=== PATIENT | female | born 1935 | race Caucasian/White ===

== ENCOUNTER 2017-01-24 22:19 | Inpatient (IN) ==
[2017-01-24] MEDS ORDERED: CARDIZEM IV ONE ×2 (23:00→23:53)
[2017-01-24 23:07] LABS: MANUAL DIFF NEEDED? NO
[2017-01-24 23:25] LABS: BASO% 0.3 % (0.0-0.8); EOS# 0.01 X1000 (0.0-0.7); EOS% 0.3 % (0.0-10.0); HEMATOCRIT 41.1 % (37.0-47.0); HEMOGLOBIN 13.5 g/dL (12.0-16.0); LYMPH# 2.06 X1000 (1.2-3.4); LYMPH% 55.5 % (20.5-51.1); MCHC 32.8 g/dL (33-37); MCV 91.3 FL (81-99); MONO# 0.62 X1000 (0.11-0.59); MONO% 16.7 % (1.7-9.3); MPV 11.6 FL (7.4-10.4); NEUT% 27.2 % (42.2-75.2); PLT 147 X1000 (130-400)
[2017-01-24 23:26] LABS: AGAP 14; ALBUMIN 4.5 g/dL (3.5-5.0); ALKALINE PHOSPHATASE 93 U/L (32-104); BUN 8 mg/dL (8-22); CALCIUM 9.1 mg/dL (8.8-10.2); CHLORIDE 103 mmol/L (98-107); COSMO 283; GOT 22 U/L (10-30); GPT 13 U/L (10-36); MAGNESIUM 2.2 mg/dL (1.5-2.7); POTASSIUM 3.3 mmol/L (3.5-5.1); SODIUM 143 mmol/L (136-145); TCO2 26 mmol/L (25-35); TOTAL PROTEIN 7.5 g/dL (6.3-8.3)
[2017-01-25 00:03] LABS: FREE T4 2.34 ng/dL (0.93-1.70)
[2017-01-25] MEDS ORDERED: CARDIZEM 100 MG/NS 100 MG/100 ML IVPB IV SCH ×2 (00:17→07:00)
[2017-01-25] MEDS ORDERED: CARDIZEM IV ONE (00:17)
--- NOTE | 2017-01-25 00:20 | ED EKG INTERP ---
This chart was entered by Donna Martins Scribe, acting as scribe for Tanmay Antonio MD. EKG Interpretation - EKG Time of EKG reading by physician:: 22:19 EKG Read and Signed by:: Tanmay Antonio EKG Interpretation (*Must complete 3 of following elements*): Abnormal Rate: 145 Rhythm: AFib w/ RVE with premature ventricular or aberrantly conducted complexes QRS: RBB (incomplete) Comments: Abnormal ECG, Marked ST abnormality,possible inferior subendocardial injury This chart was documented by the indicated scribe, (Donna Martisn Scribe) and accurately reflects the services I performed and decisions made by me, Tanmay Antonio MD, as attested by the provider's signature.
--- NOTE | 2017-01-25 00:22 | PROVIDER DOCUMENTATION ---
This chart was entered by Donna Martins Scribe, acting as scribe for Tanmay Antonio MD. HPI-Cardiac General - General Chief Complaint: Palpitations Stated Complaint: A-FIB Time Seen by Provider: 01/24/17 22:30 Source: patient Allergies/Adverse Reactions: Patient Allergies Allergy/AdvReac Type Severity Reaction Status Date / Time No Known Allergies Allergy Verified 01/24/17 22:40 Home Medications: Home Medication List Medication Instructions Recorded Confirmed Last Taken Type Gabapentin [Neurontin] 300 mg PO TID 01/22/14 01/24/17 01/24/17 History Levothyroxine Sodium [Synthroid] 125 mcg PO DAILY 01/22/14 01/24/17 01/24/17 History - History of Present Illness-Cardiac Nature of Presenting Problem: 82 Y/O F presents to ED with Palpitations. Pt states that yesterday she had an infusion of Iron and today she was in the kitchen and her heart started fluttering and didn't stop fluttering. Pt states that she has a family hx of irregular heart beat. Pt states feels as though she had pressure on her chest and she's felt lightheaded. Location: reports: central Quality of Pain: reports: pressure Severity in ED: severe Onset/Duration: this evening Timing: still present Palpitation Quality: fast/pounding heart beat History of arrythmia: reports: other (irregular) Recent use of:: reports: no stimulants Nitro Today/Relief: reports: no nitro taken today Aspirin Treatment Today: reports: no aspirin today Associated Symptoms: denies: fever/chills, shortness of breath Review of Systems - Adult - REVIEW OF SYSTEMS - ADULT Constitutional: denies: chills, fever Eyes: reports: no symptoms reported Ears, Nose, Mouth & Throat: reports: no symptoms reported Cardiovascular: reports: irregular heart rate, palpitations. denies: chest pain , poor circulation Respiratory: reports: no symptoms reported Gastrointestinal: reports: no symptoms reported Genitourinary: reports: no symptoms reported Musculoskeletal: reports: no symptoms reported Integumentary: reports: no symptoms reported Neurological: reports: other (lightheaded) Psychiatric: reports: no symptoms reported Endocrine: reports: no symptoms reported Hematologic/Lymphatic: reports: no symptoms reported Allergic/Immunologic: reports: no symptoms reported All Other Systems: Reviewed and Negative Past History - Adult - PAST MEDICAL HISTORY-ADULT Review of Records: reports: Old Records Reviewed, Nursing Assessment Review, Medications Reviewed, Social history reviewed & non-contributory. Physical Exam-General - CONSTITUTIONAL General Appearance: alert, no apparent distress - EYES Eyes: PERRL/EOMI, pink conjunctivae - HEAD, EARS, NOSE, MOUTH & THROAT HENMT: normocephalic/atraumatic, moist mucous membranes, normal ENT inspection, TMs normal, pharynx normal - NECK Neck: full range of motion, supple, normal inspection - RESPIRATORY Respiratory: lungs clear, normal breath sounds - CARDIOVASCULAR Cardiovascular: tachycardia, irregularly irregular - GASTROINTESTINAL (ABDOMEN) Abdominal Exam: non tender, soft - LYMPHATIC Lymphatic: no adenopathy - MUSCULOSKELETAL Back Exam: normal inspection Extremity: normal range of motion, non-tender - SKIN Integumentary: normal color, normal turgor - NEUROLOGIC Neurologic: grossly normal - PSYCHIATRIC Psych/Mental Status: normal mood/affect, normal thought content, normal thought process, oriented x 3 Progress - PLAN OF CARE/RESULTS Progress/Plan/Lab Results: Vital Signs - 8 hr 01/24/17 22:15 01/24/17 23:53 Temperature 98.1 F Pulse Rate 137 H 120 H Respiratory Rate 26 H 22 Blood Pressure 149/106 128/114 O2 Sat by Pulse Oximetry 99 99 Laboratory Results - last 24 hr 01/24/17 01/24/17 01/24/17 21:50 21:50 21:50 WBC 3.71 L RBC 4.50 Hgb 13.5 Hct 41.1 MCV 91.3 MCH 30.0 MCHC 32.8 L RDW Std Deviation 14.9 H Plt Count 147 MPV 11.6 H Immature Gran % (Auto) 0.0 Neut % (Auto) 27.2 L Lymph % (Auto) 55.5 H Rankin % (Auto) 16.7 H Eos % (Auto) 0.3 Baso % (Auto) 0.3 Immature Gran # (Auto) 0.00 Neut # (Auto) 1.01 L Lymph # (Auto) 2.06 Rankin # (Auto) 0.62 H Eos # (Auto) 0.01 Baso # (Auto) 0.01 Sodium 143 Potassium 3.3 L Chloride 103 Carbon Dioxide 26 Anion Gap 14 BUN 8 Creatinine 0.6 Estimated GFR/1.73 m2 > 60 BUN/Creatinine Ratio 13 Glucose 96 Calculated Osmolality 283 Calcium 9.1 Magnesium 2.2 Total Bilirubin 0.60 AST 22 ALT 13 Alkaline Phosphatase 93 Total Protein 7.5 Albumin 4.5 Globulin 3.0 Albumin/Globulin Ratio 1.5 TSH 0.04 L Free T4 2.34 H Orders Category Date Time Status CBC WITH ELECTRONIC DIFF [HEME] Stat Lab 01/24/17 21:50 Completed CMP [COMPREHENSIVE METABOLIC PANEL] [CHEM] Stat Lab 01/24/17 21:50 Completed FREE T4 Stat Lab 01/24/17 21:50 Completed MAGNESIUM [CHEM] Stat Lab 01/24/17 21:50 Completed TSH Stat Lab 01/24/17 21:50 Completed Diltiazem 100 mg/Ns [Cardizem 100 mg/Ns] Med 01/25/17 00:17 Ordered 100 mg in 100 ml IV 10 mg/hr Diltiazem [Cardizem] Med 01/24/17 23:00 Discontinued 10 mg IV NOW ONE Diltiazem [Cardizem] Med 01/24/17 23:53 Discontinued 10 mg IV NOW ONE Diltiazem [Cardizem] Med 01/25/17 00:17 Discontinued 10 mg IV NOW ONE Result Diagrams: 01/24/17 21:50 01/24/17 21:50 Departure - Departure Date of Disposition Decision: 01/25/17 Time of Disposition Decision: 00:20 DIAGNOSIS: Atrial fibrillation with RVR, Iatrogenic hyperthyroidism Disposition: ADMITTED INPATIENT 09 Certified Medical Emergency: Emergent Condition: Fair - Critical Care Note This patient required my direct & personal management of CC.: No This chart was documented by the indicated scribe, (Donna Martins Scribe) and accurately reflects the services I performed and decisions made by me, Tanmay Antonio MD, as attested by the provider's signature.
[2017-01-25] MEDS ORDERED: NEURONTIN PO ONE (01:32)
--- NOTE | 2017-01-25 03:24 | HISTORY AND PHYSICAL ---
CHIEF COMPLAINT: Dizziness, heart racing, and diarrhea for several days. HISTORY OF PRESENTING ILLNESS: An 82-year-old female with a history of hypothyroidism on Synthroid, and irritable bowel syndrome. Had presented to the emergency department with several days' history of having dizziness and heart racing. Patient states that she was having also weight loss and diarrhea for several months. She apparently has been taking Synthroid. However, it seems as it may have been excessive. She was evaluated in the ER, and laboratories confirmed that she has hyperthyroidism. Due to these presenting symptoms, and with findings of having atrial fibrillation with RVR in the ED, she will need hospitalization for further management. At the time of my examination, she had denied any headache, nausea, vomiting, chest pain, hemoptysis, melena, but complained of having diarrhea, dizziness, and weight loss. PAST MEDICAL HISTORY: Hypothyroidism and irritable bowel syndrome. PAST SURGICAL HISTORY: Thyroidectomy, back surgery, cholecystectomy, hysterectomy. ALLERGIES: No known drug allergies. CURRENT MEDICATIONS: As listed in the MAR. SOCIAL HISTORY: She denies any history of smoking, alcohol, or illicit drug use. FAMILY HISTORY: No history of coronary disease. REVIEW OF SYSTEMS: Twelve point review of systems listed as in HPI. Other systems negative. PHYSICAL EXAMINATION: GENERAL: Cooperative, friendly female. She is resting more comfortably now. VITAL SIGNS: Temperature 98.1 degrees, pulse 137, respiration 26, blood pressure 149/106. She is saturating 99%. HEENT: Atraumatic, normocephalic. Extraocular movements intact. PERRLA. NECK: No masses. CHEST: Clear to auscultation. CARDIOVASCULAR: Irregularly irregular. ABDOMEN: Soft. Positive bowel sounds. EXTREMITIES: No edema. NEUROLOGIC: Awake, alert, oriented x3. GENITOURINARY: No bladder distention. SKIN: Warm. LABORATORIES AND STUDIES: WBC 3.71, hemoglobin 13.5, hematocrit 41.1, platelets 147,000. Sodium 143, potassium 3.3, chloride 103, CO2 of 26, BUN is 8, creatinine 0.6, glucose is 96. TSH is 0.04. T4 is 2.34. ASSESSMENT: An 82-year-old female with a history of hypothyroidism and diabetes, who presented to the emergency department with several days' history of having dizziness and heart racing. She was also complaining of having diarrhea and weight loss for several months. She was evaluated in the ER. She was found to be in atrial fibrillation with RVR. She was put on IV Cardizem. It was noted that she was hyperthyroid, and due to these presenting symptoms, she will need hospitalization for further management. 1. Atrial fibrillation with rapid ventricular response. 2. Exogenous hyperthyroidism. 3. Irritable bowel syndrome, with diarrhea. PLAN: 1. We will admit patient to [facility]. 2. We will continue with IV Cardizem for better rate control. 3. We will stop her thyroid hormone, and recheck thyroid function tests. 4. We will consult Cardiology also. 5. Will put patient on deep venous thrombosis prophylaxis with sequential compression devices. 6. Will adjust electrolytes. 7. We will continue to follow and reassess. cc: Elvis Tee MD
[2017-01-25] MEDS ORDERED: NS 1,000 ML IV SCH (06:59)
[2017-01-25] MEDS: NEURONTIN PO SCH ×4 (10:15→20:07)
--- NOTE | 2017-01-25 11:16 | EKG Report ---
Test Performed on : 01/25/2017 10:48:26 AM Test Reason : afib Blood Pressure : / mmHG Vent. Rate : 066 BPM Atrial Rate : 066 BPM P-R Int : 120 ms QRS Dur : 104 ms QT Int : 442 ms P-R-T Axes : 079 063 013 degrees QTc Int : 463 ms Normal sinus rhythm. with sinus arrhythmia. Possible Left atrial enlargement Incomplete right bundle branch block Nonspecific T wave abnormality Abnormal ECG When compared with ECG of 24-JAN-2017 22:19, (Unconfirmed) Sinus rhythm. has replaced Atrial fibrillation. Vent. rate has decreased BY [address] less depressed in Inferior leads ST no longer depressed in Anterolateral leads Confirmed by Jose MONTOYA, Vu Milner ([id number]) on 01/25/2017 2:56:45 PM
--- NOTE | 2017-01-25 11:53 | CONSULTATION ---
DATE OF CONSULTATION: 01/25/2017 INDICATION FOR THE CONSULTATION: New onset atrial fibrillation. HISTORY OF PRESENT ILLNESS: Ms. Kimball is an 82-year-old white female with a history of hyperthyroidism, status post thyroidectomy, as well as irritable bowel syndrome. She presented for evaluation of heart racing as well as dizziness that occurred initially around 4:00 p.m. yesterday while she was making dinner. This progressed. She checked her blood pressure at home and was noted to have a systolic above 200. She subsequently presented to the ER and was found to be in atrial fibrillation with a rate of around 140. She was administered several doses of diltiazem and ultimately planned for admission overnight. She subsequently, prior to her echocardiogram this morning, converted into sinus rhythm. She has not had a history of stroke. She is not diabetic. She has not had any issues with falls and is not a patient with bleeding issues. PAST MEDICAL HISTORY: 1. Hyperthyroidism status post thyroidectomy. 2. Irritable bowel syndrome. SOCIAL HISTORY: No history of tobacco, alcohol, or illicit drug use. FAMILY HISTORY: Significant for no early family history of coronary disease. REVIEW OF SYSTEMS: A 10-system review of systems is negative except for those mentioned in the HPI. PHYSICAL EXAMINATION: Vital signs: Presently, she is afebrile. Heart rate of 87, blood pressure 116/56. General: No acute distress. She is very pleasant. HEENT: Oropharynx is moist. Normal dentition. Eye examination is pink conjunctivae. White sclerae. Neck examination shows no obvious thyromegaly or thyroid tenderness. Cardiovascular: She is in a regular rate and rhythm. She has no obvious murmurs. She has no S3. She has no lower extremity edema. No carotid bruits. Chest: Clear to auscultation bilaterally. No increased work of breathing. Abdomen: Soft, nontender, nondistended. She has no obvious organomegaly. Skin Exam: Warm and dry throughout any rashes. Neurological: She is moving all extremities well. Cranial nerves 2-12 are intact without any sensation deficits. Psychiatric: Alert, oriented, and pleasant. She has normal mood and affect. PERTINENT DATA: Original EKG appeared to be consistent with atrial fibrillation with a rate of 145 beats per minute. Subsequent has shown conversion over to sinus rhythm with a rate of 66 beats per minute. Her laboratory data demonstrates white count of 3.7, hematocrit 41, platelet count 147,000. Sodium 143, potassium 3.3. BUN 8 creatinine 0.6. Her free T4 was high at 2.34 with a TSH of 0.04. Liver enzymes were normal. Magnesium level 2.2. Echocardiogram is currently pending, but preliminary views seem to show a preserved ejection fraction. ASSESSMENT: New onset atrial fibrillation. PLAN: The patient has a CHADS-VASc score of 2 for age and female sex. We will start her on Eliquis 2.5 mg b.i.d. dosed based on her age as well as weight. Risks, benefits and alternatives to anticoagulation were discussed with the patient. She agrees to proceed. In addition, I have started her on Toprol 25 mg daily. I would recommend decreasing her dose of her thyroid supplement as this was likely playing a role in the presentation today. She sees Dr. Pace in [place], and we will plan on following up with him within a month post discharge. cc: MD Mike Thompson MD
[2017-01-25] MEDS: ELIQUIS PO SCH ×2 (12:00→20:07)
[2017-01-25] MEDS: TOPROL XL PO SCH (12:30)
--- NOTE | 2017-01-25 20:54 | ECHO REPORT ---
ORDER DATE: 01/25/2017 INTERPRETING PHYSICIAN: Dr. Maria REQUESTING PHYSICIAN: CLINICAL INDICATIONS: An 82-year-old female with new onset atrial fibrillation , palpitations. M-MODE MEASUREMENTS: Right ventricle: 2.9 cm. Left ventricle end diastole: 4.6 cm. Left ventricle end systole: 2.4 cm. Posterior wall: 0.9 cm. Interventricular septum: 1.0 cm. Left atrium: 4.3 cm. Aortic root: 2.6 cm. SUMMARY OF 2-DIMENSIONAL IMAGING: The left ventricular function is normal. Ejection fraction 66%. There is no wall motion abnormality. The right ventricle appears to be normal. The left atrium is probably moderately dilated. The aortic valve shows thickening of the cusps. Color flow mapping indicates a mild degree of regurgitation. The pulmonic valve looks normal. Color flow mapping unremarkable. The mitral valve looks normal. Color flow mapping indicates a mild degree of regurgitation. Pulse wave Doppler of mitral inflow is normal. Tissue Doppler of septal and lateral mitral annulus averages 8 cm per second. The pulse wave Doppler of pulmonary venous flow is normal. There is no diastolic dysfunction. The tricuspid valve looks normal. Color flow mapping unremarkable. Pulmonary pressure estimated at 28 mmHg. The inferior vena cava is not dilated. The pulmonic valve looks normal. There is no pericardial effusion, masses or thrombus. At the end of the study the patient received injection of agitated saline looking for a [id number] or [id number] shunt. This study showed optimal opacification of the right-sided chamber with no evidence of shunt. IMPRESSION: In summary, this study shows: 1. Normal left ventricular systolic function. 2. Mild degree of aortic, tricuspid, and mitral regurgitation. 3. No diastolic dysfunction. 4. Pulmonary pressure of 28 mmHg. 5. There is moderate enlargement of the left atrium. Clinical correlation recommended. cc: MD Herson Moran MD Jagan Reddy, MD MTDD
--- NOTE | 2017-01-26 04:49 | PROGRESS NOTE ---
DATE: 01/25/2017 SUBJECTIVE: Interval history was reviewed. 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 She is in hypothyroid. Thyroid function tests slightly high. The patient was seen in my office for diarrhea, intractable abdominal pain. The patient had gallbladder surgery done. REVIEW OF SYSTEMS: No headache. No dizziness. Cardiopulmonary: Palpitations. No chest pain, and no shortness of breath. GI: Intermittent abdominal pain, diarrhea. Endocrine: Hypothyroid. Last thyroid function test in my office 05/19/2016 was normal. Neurologic: No obvious focal symptoms or weakness. PAST MEDICAL HISTORY/PAST SURGICAL HISTORY/MEDICINES: Reviewed. OBJECTIVE: Vital Signs: Stable. 5 feet 4 inches, 107 pounds. HEENT: Atraumatic, normocephalic. Pupils equal, reactive to light. Neck: Supple. Chest: Clear. Heart: Sounds are regular. Abdomen: Belly is soft, nontender. Good bowel sounds. No masses are palpable. No focal deficits. INVESTIGATIONS: CBC: White cell count 3.7, hematocrit 40, platelets 147,000. SMA 7: Potassium 3.3, free T4 is 2.3. TSH is low. EKG: Currently normal sinus, nothing acute. Echocardiography was done. Results are pending. ASSESSMENT AND PLAN: 1. An 82-year-old white female admitted to the hospital with palpitations due to new onset of atrial fibrillation. Currently in sinus with Cardizem drip. Follow up on echo report and cardiac enzymes. 2. Hypothyroidism. On Synthroid. Exogenous hypothyroid. Last thyroid function tests tests were normal in May 2016. We will hold the Synthroid dose. We will adjust the dose based on the body weight. 3. Based on the CHADS2 VASc score, patient is a candidate for Eliquis to prevent strokes. Currently on metoprolol. 4. Chronic diarrhea. Previous workup was negative and we will slowly reconcile the home medications. Discussed with the patient further plan of care Level of documentation is 35 minutes. cc: Mike Daniel MD MTDD
[2017-01-26 05:11] LABS: MANUAL DIFF NEEDED? NO
[2017-01-26 05:30] LABS: EOS# 0.01 X1000 (0.0-0.7); EOS% 0.3 % (0.0-10.0); HEMOGLOBIN 11.9 g/dL (12.0-16.0); LYMPH# 1.74 X1000 (1.2-3.4); LYMPH% 58.6 % (20.5-51.1); MCH 29.6 PG (27-31); MCHC 32.2 g/dL (33-37); MONO# 0.56 X1000 (0.11-0.59); MONO% 18.9 % (1.7-9.3); MPV 11.4 FL (7.4-10.4); NEUT% 22.2 % (42.2-75.2); PLT 145 X1000 (130-400); RBC 4.02 XMIL (4.2-5.4)
[2017-01-26 06:41] LABS: AGAP 9; BUN 14 mg/dL (8-22); CALCIUM 7.9 mg/dL (8.8-10.2); CHLORIDE 108 mmol/L (98-107); COSMO 283; POTASSIUM 3.5 mmol/L (3.5-5.1); SODIUM 142 mmol/L (136-145); TCO2 25 mmol/L (25-35)
[2017-01-26 08:19] VITALS: BP 129/63
[2017-01-26] MEDS: TOPROL XL PO SCH (08:19)
[2017-01-26] MEDS: ELIQUIS PO SCH (08:19)
[2017-01-26] MEDS: NEURONTIN PO SCH (08:20)
--- NOTE | 2017-01-26 11:12 | EKG Report ---
Test Performed on : 01/24/2017 10:19:33 PM Test Reason : CP Blood Pressure : / mmHG Vent. Rate : 145 BPM Atrial Rate : 133 BPM P-R Int : 000 ms QRS Dur : 096 ms QT Int : 302 ms P-R-T Axes : 000 062 003 degrees QTc Int : 469 ms Atrial fibrillation. with rapid ventricular response. with premature ventricular or aberrantly condu cted complexes. Incomplete right bundle branch block Marked ST abnormality, possible inferior subendocardial injury Abnormal ECG When compared with ECG of 22-JAN-2014 09:27, Atrial fibrillation. has replaced Sinus rhythm. Vent. rate has increased BY 89 BPM Incomplete right bundle branch block is now present Unconfirmed Result
--- NOTE | 2017-01-27 00:39 | DISCHARGE SUMMARY ---
ADMISSION DATE: 01/25/2017 DISCHARGE DATE: 01/26/2017 DISCHARGING DIAGNOSES: 1. New onset of atrial fibrillation. 2. Exogenous hyperthyroidism. Decreased the Synthroid dose to 75 mcg once a day. 3. Irritable bowel syndrome, with diarrhea. 4. 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 6. Osteoporosis. CONSULTATIONS: Dr. Herson Irene. PROCEDURES: Echocardiography. Findings: Normal LV systolic function. No diastolic dysfunction. Moderate enlargement of left atrium, 4.3 cm. No significant valvular heart disease seen. BRIEF HISTORY: Please see the H and P that was done by the hospitalist. In brief, she is an 82- year-old white female who came to the hospital with palpitations. She was found to have atrial fibrillation. Patient was started on Cardizem drip. Subsequently, converting to sinus. Initial workup cardiac enzymes were normal. ProBNP was normal. Patient was seen by Dr. Irene. She has a history of hypothyroidism, on Synthroid 125 mcg once a day. Follow up thyroid function tests for elevated free T4 and low TSH. The patient was advised not to take Synthroid for 2 weeks, and started on beta blockers, and also based on the [id number] score, the risk is high for stroke, and started on Eliquis 2.5 p.o. b.i.d. At the time of discharge, patient is in sinus, stable. No chest pain. They will do an outpatient stress test. DISCHARGE INSTRUCTIONS: 1. Neurontin 300 daily. 2. Hold the Synthroid for 2 weeks, and cut down the dose to 75 mcg daily. 3. Zantac 150 daily. 4. Metoprolol 25 daily. 5. Eliquis 2.5 mg p.o. b.i.d. 6. Brimonidine 0.2% ophthalmic drops, and also latanoprost drops for glaucoma. 7. Will follow up in my office next week. cc: MD Herson Kim MD
== END 2017-01-26 09:50 | disposition home or self-care (01) ==
LOC: ED 22:19 → EDIPHOLD 01-25 02:21 → SUATTDRO 01-25 02:21 → 3S 01-25 13:38
PROVIDERS: ADMIT Internal Medicine; ATTEND Internal Medicine

== ENCOUNTER 2017-05-08 11:58 | Inpatient (IN) ==
[2017-05-08 15:25] LABS: MANUAL DIFF NEEDED? NO
[2017-05-08 15:31] LABS: BASO% 0.3 % (0.0-0.8); EOS# 0.01 X1000 (0.0-0.7); EOS% 0.3 % (0.0-10.0); HEMATOCRIT 42.7 % (37.0-47.0); HEMOGLOBIN 14.1 g/dL (12.0-16.0); IMM GRAN# 0.02 X1000 (0.0-0.04); IMM GRAN% 0.7 % (0.0-0.5); LYMPH# 1.66 X1000 (1.2-3.4); LYMPH% 57.2 % (20.5-51.1); MCH 31.3 PG (27-31); MCV 94.9 FL (81-99); MONO# 0.41 X1000 (0.11-0.59); MONO% 14.1 % (1.7-9.3); MPV 11.7 FL (7.4-10.4); NEUT% 27.4 % (42.2-75.2); PLT 111 X1000 (130-400)
[2017-05-08 15:48] LABS: AGAP 13; ALBUMIN 4.6 g/dL (3.5-5.0); ALKALINE PHOSPHATASE 97 U/L (32-104); BUN 14 mg/dL (8-22); CALCIUM 9.4 mg/dL (8.8-10.2); CHLORIDE 102 mmol/L (98-107); COSMO 281; GOT 14 U/L (10-30); GPT 10 U/L (10-36); POTASSIUM 3.5 mmol/L (3.5-5.1); SODIUM 141 mmol/L (136-145); TCO2 26 mmol/L (25-35); TOTAL BILIRUBIN 0.56 mg/dL (0.20-1.00); TOTAL PROTEIN 7.2 g/dL (6.3-8.3)
[2017-05-08] MEDS ORDERED: BENTYL PO PRN (16:13)
[2017-05-08] MEDS: LOMOTIL PO SCH (17:22)
[2017-05-08] MEDS: CLINIMIX E 4.25%-5% SOLUTION 1,000 ML IV SCH (19:54)
--- NOTE | 2017-05-08 20:00 | CONSULTATION ---
DATE OF CONSULTATION: 05/08/2017 HISTORY AND REASON FOR CONSULTATION: For evaluation of this patient with chronic diarrhea and weight loss. HISTORY OF PRESENT ILLNESS: Mrs. Conchis Kimball is known to me from previous office visits. The last time she saw me was in November 2016. The patient has diarrhea for quite a few months. In fact, after having had cholecystectomy done on 09/08/2016, her diarrhea became aggravated. She also had crampy type of abdominal pain on and off for a long time. The patient had been coming to see me until November. During last visit I had put her on Lomotil 2.5 mg b.i.d. and Questran Lite 4 g b.i.d. for her chronic diarrhea. She had been on dicyclomine 10 mg t.i.d. p.r.n. also for abdominal cramps. She was supposed to see me back in 1 month, but did not come for followup appointment in December. The patient was admitted to the hospital according to her. She said that it is because of dehydration and chronic diarrhea. Because of significant diarrhea, she has become dehydrated and she lost weight. Her last weight recorded in the office was 109 pounds. Currently she is only 101. She said that she is very weak and is unable to walk. Every time she eats something she gets diarrhea and she becomes incontinent. She says that first liquids come out and then only some stool come out. She has it several times a day. She also has some cramps. Once the stool comes out, the cramps improves. The patient had esophagogastroduodenoscopy done by me and also colonoscopy done in 2013. Esophagogastroduodenoscopy revealed that she has a 2 cm hiatal hernia and mild erosive gastritis. Her biopsy was negative for any Helicobacter pylori infection. Colon showed mild diverticulosis of the sigmoid colon. She went to see a physician in [place], Dr. Wick who did an esophagogastroduodenoscopy on 07/15/2016 which showed again gastritis. Dr. Wick also did a flexible sigmoidoscopy on her at the same time. She also noted mild diverticulosis of the colon. Biopsies were done. They were said to be negative. A CT scan of the abdomen and pelvis done which showed echogenic sludge in the gallbladder. HIDA scan was positive. She was referred to Dr. Davila here; however, she went to see in [place] and she got her cholecystectomy done on in September 2016. PAST MEDICAL HISTORY: 1. Known case of irritable bowel syndrome and diverticulosis of the colon. 2. Known case of gastroesophageal reflux. 3. Hiatal hernia and reflux esophagitis and gastritis. 4. Hypothyroidism. 5. Neuropathy. 6. Chronic anemia being followed by Dr. Alvarado. Bone marrow biopsy has been done. 7. Leukopenia. Both of these conditions possibly due to myelodysplastic syndrome. PAST SURGICAL HISTORY: Cholecystectomy and hysterectomy. SOCIAL HISTORY: She has 3 children. She is . Does not abuse alcohol or tobacco. FAMILY HISTORY: No history of any GI cancer in the family. MEDICATIONS: Acetazolamide 500 mg capsule 2 once daily, aspirin 81 mg daily, iron tablet 325 mg daily, multivitamin and magnesium 250 mg tablet daily, probiotic t.i.d., vitamin D3 5000 units daily, Librax 52.5 mg 1 capsule 3 times a day p.r.n., Mobic 7.5 mg daily, Neurontin 300 mg daily, Synthroid 125 mg daily, vitamin B12 500 mcg injectable once a month. ALLERGIES: No known drug allergies. REVIEW OF SYSTEMS: GI: She says her appetite is good, but every time she eats she goes to the bathroom, that is the problem. She has crampy lower abdominal pain and diarrhea with incontinence of stool. There is no blood in stool or black stool. Has significant weight loss. PHYSICAL EXAMINATION: General: The patient is alert and oriented x 3, emaciated. Vital Signs: The temperature is 97.4 degrees, pulse rate is 63, respiratory rate is 16, blood pressure is 165/65. Weight is 101 pounds. Skin: Warm and dry. Mucous membranes are moist. Neck: Supple. There is no thyromegaly. Cardiac: Both heart sounds are heard. Rhythm is regular. I could not hear any murmur. Lungs: Clear to percussion and auscultation. Abdomen: Flat , no masses felt. Bowel sounds are hyperactive. There is no significant tenderness. Extremities : Free of any edema. LABORATORY DATA: The WBC count is 2.90, hemoglobin 14.1, hematocrit 42.7, platelet count is 111,000. The sodium is 141, potassium 3.5, chloride is 102, carbon dioxide 26, BUN 14, creatinine 0.7, glucose is 90. Total bilirubin 0.56, AST is 14, ALT is 10, alkaline phosphatase 97, total protein is 7.2, albumin is 4.6. IMPRESSION: Chronic diarrhea, cause is unclear. It may have multiple causes such as: 1. Bile induced diarrhea. 2. Irritable bowel syndrome with predominant diarrhea. 3. Functional diarrhea. RECOMMENDATIONS: The patient had a workup done in the past especially last year by Dr. Wick. Apparently there was no evidence of any collagenous colitis at that time, but it may be there at this point. If it is bile induced diarrhea, Carafate slurry will help. She states that Questran Light did not really help her. Lomotil helped her quite a bit. I will put her on a low-fat diet and give Lomotil 2.5 mg 2 b.i.d., Dicyclomine 10 mg t.i.d. p.r.n., and also Carafate slurry 1 g q.i.d. Some patients with irritable bowel syndrome are helped by Xifaxan 550 mg daily to control the bacterial overgrowth. While she is in the hospital, we will try to do that. If diarrhea is being continued, she might need a flexible sigmoidoscopy and esophagogastroduodenoscopy. That will be considered at a later date. cc: Mike Daniel MD MTDEmilia
[2017-05-08] MEDS: LOVENOX SUBQ SCH (20:01)
[2017-05-08] MEDS: SODIUM CHLORIDE 0.9% INJ SCH (20:01)
[2017-05-08] MEDS: PROTONIX IV SCH (20:01)
[2017-05-08] MEDS: CARAFATE LIQUID PO SCH (20:01)
[2017-05-08] MEDS: XIFAXAN PO SCH (22:16)
[2017-05-09] MEDS: CARAFATE LIQUID PO SCH ×4 (04:26→22:29)
[2017-05-09] MEDS: CLINIMIX E 4.25%-5% SOLUTION 1,000 ML IV SCH ×2 (06:48→19:50)
[2017-05-09 06:57] LABS: FREE T4 1.52 ng/dL (0.93-1.70)
--- NOTE | 2017-05-09 08:12 | HISTORY AND PHYSICAL ---
SUBJECT: Intractable diarrhea and weight loss, abdominal pain for the last 1 year. HPI: She is 82-year-old white female, was brought in by the that she is getting these problems since a year ago. She was seen by 3 different gastroenterologists. Apparently she was diagnosed IBS with diarrhea. She tried lot of medicines, none of them are successful. Gallbladder was taken out. She was seen before by Dr. Marie. Recently was evaluated by Cesar Fry, treated with scopolamine patches as well as Xifaxan. No improvement. She complains of weight loss and unbearable. The wants to admit to the hospital with impending dehydration, further workup and I also consult Dr. Marie. 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 PAST SURGICAL HISTORY: Thyroid surgery, cholecystectomy, complete hysterectomy , back surgery x2. MEDICATIONS: In my office Zantac 150 daily, Synthroid 88 mcg daily, calcium with vitamin D, bunamidine tartrate, patient stopped taking Eliquis, metoprolol stopped it, she was taking Neurontin and Voltaren gel for right ankle pain. ALLERGIES: Not known. SOCIAL HISTORY: , 3 kids, lives in [place]. No smoking, no alcohol. FAMILY HISTORY: Father of appendix cancer, mom of stroke at 96. REVIEW OF SYSTEMS: HEENT: No headache. No vision problem. No earache. No sore throat. Neck: No goiter. No lymphadenopathy. No bruit. Cardiopulmonary: No chest pain, shortness of breath, palpitation, PND, orthopnea. GI: Abdominal pain, diarrhea, weight loss, not able to go to sleep. : No history of hesitancy, frequency dysuria or hematuria and no swelling of feet. Neuro: No focal symptoms or weakness. General Examination: Vital signs: She is afebrile , vitals are stable, 5 feet 4, 101 pounds. HEENT: Atraumatic, normocephalic. Pupils equal, reactive to light. TMs are normal. Nose and throat within normal limits. Neck: Supple. No lymphadenopathy. No goiter. Chest: Bilateral air entry. No rales, no wheezing. Heart: Sounds are regular. Belly: Is soft, scaphoid, no signs of peritonitis. Extremities : No peripheral edema, cyanosis. Neuro: No obvious neurological deficits. INVESTIGATIONS: White cell count 2.9, hematocrit 42, platelets 111,000. SMA 7, LFTs were normal. ASSESSMENT AND PLAN: 1. 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 Alvarado currently stable. 2. Paroxysmal atrial fibrillation due to hyperthyroid and decrease the Synthroid dose. Seen by fur designer in [place] currently taking Synthroid. Check the thyroid function tests as well. 3. Impending dehydration and IV Clinimix. 4. Reconcile home medications. Follow up on the pending tests and will discuss with the family. cc: Mike Daniel MD MTDD
[2017-05-09] MEDS ORDERED: SYNTHROID PO SCH (09:00)
[2017-05-09] MEDS: XIFAXAN PO SCH ×3 (09:03→22:28)
[2017-05-09] MEDS: LOMOTIL PO SCH ×3 (09:03→22:28)
--- NOTE | 2017-05-09 12:00 | PROGRESS NOTE ---
DATE: 05/09/2017 SUBJECTIVE: This patient got admitted with chronic diarrhea and weight loss. She had an extensive workup done by me in the past as well as Dr. Shelbie Mcfarlane last year. I also heard that she had seen Dr. Fry recently. She is admitted to the hospital because of possible dehydration. I saw her yesterday and she was started on several medications for this chronic diarrhea. She has significant irritable bowel syndrome with diverticulosis and perhaps bile reflux gastritis and bile induced diarrhea. Today when I was making rounds, Dr. Daniel also was making rounds and he was in the room with the patient. We both so the bowel movement she had. It was brownish liquid stools with lots of stool in it with lots of water in it too. It was not completely watery but not formed. The patient had some little lower abdomen cramps. She was given Xifaxan, Carafate slurry, dicyclomine, and Lomotil. The patient does not want to take too many medications. She has significant hypothyroidism and she was on a fairly high dose of thyroid hormones for a long time. She lost a lot of weight since her gallbladder removal because of diarrhea and her requirement has come down. She also developed atrial fibrillation. So I discussed with Dr. Daniel and recommended that she only gets a minimum dose of thyroid hormones, like 25 mcg daily. It will take a few weeks for her to get adjusted to the current dose because of long half-life of thyroid hormones. The patient hopefully will gain weight. She said that her appetite is great but every time she eats, she has to run to the bathroom. This might be related to iatrogenic hyperthyroidism. The atrial fibrillation is being managed already. I have discussed all of these things with Dr. Daniel as well as the patient and told her that she has to be patient and medicines have to be given a chance to work for some time. The patient finally agreed with us. Apparently Dr. Fry prescribed Xifaxan 550 mg daily. She only took it for 2 weeks and said that was not working and then she was admitted to the hospital. I encouraged her to continue the medication for at least 1 month before she deems that the medicine is not working. PHYSICAL EXAMINATION: General: The patient is alert and oriented x3. She is very pleasant. Does not seem to be any distress. Emaciated as before. Vital Signs: Temperature is 97.7 degrees, pulse is 67 per minute, respiratory rate is 18, blood pressure is 124/73. Skin: Warm and dry. Mucous membranes are moist. Neck: Supple. There is no thyromegaly. Cardiac: Both heart sounds are heard. Rhythm is regular. I could not hear any murmur. Abdomen: Soft, nontender, nondistended. Bowel sounds are slightly hyperactive. Extremities: Free of any edema. IMPRESSION: Chronic diarrhea secondary to multiple factors. RECOMMENDATION: The patient also has a lot of anxiety and depression because of her issues. Dr. Daniel suggested maybe we will give her some Elavil and I agreed with it, in addition to the other medications. He may have to watch her for another couple of days in the hospital to see her response to the therapy, at least initially, and then I will see her back in the office for followup. Finally she agreed that she will stick with me and I said I would do everything in my means to improve her situation. There is another condition perhaps we may have to rule out if she does not respond to therapy, that is collagenous colitis. I may have to do a flexible sigmoidoscopy at a later date, biopsies. cc: MD Dr. Fredy Kim
--- NOTE | 2017-05-09 19:01 | PROGRESS NOTE ---
DATE: 05/09/2017 SUBJECT: Patient complains of diarrhea after eating breakfast. I did look at the stool. It is semisolid. Patient was seen along with Dr. Marie. REVIEW OF SYSTEMS: Abdominal pain, weight loss. EXAMINATION: Vital signs: She is afebrile. Vitals are stable. I's and O's negative -1060. HEENT Exam: Within normal limits. Neck: Supple. No lymphadenopathy. Chest: Bilateral air entry. No rales, no wheezing. Heart: Sounds are regular. Belly: Soft, scaphoid, nontender, good bowel sounds. No masses palpable. Extremities: No peripheral edema, cyanosis. Neuro: No obvious neurological deficits. LABS: Discussed. B12 is normal. Free T4 is normal. Stool cultures are pending. ASSESSMENT AND PLAN: 1. Chronic diarrhea most likely irritable bowel syndrome with D. Discussed at length with Dr. Marie. Patient had multiple workup done and pending workup. 2. Hypothyroidism. He wants to decrease Synthroid 50 mcg daily. 3. Irritable bowel syndrome with D Lomotil, Xifaxan and Carafate and Bentyl. 4. Protein calorie malnutrition. Mild IV PPN and patient has been reassured and will follow up. cc: Mike Daniel MD
[2017-05-09] MEDS: SODIUM CHLORIDE 0.9% INJ SCH (22:30)
[2017-05-09] MEDS: PROTONIX IV SCH (22:30)
[2017-05-09] MEDS: LOVENOX SUBQ SCH (22:32)
[2017-05-10] MEDS: CARAFATE LIQUID PO SCH ×4 (05:14→22:37)
[2017-05-10 06:28] LABS: MANUAL DIFF NEEDED? NO
[2017-05-10 06:52] LABS: BASO% 0.3 % (0.0-0.8); EOS# 0.01 X1000 (0.0-0.7); EOS% 0.3 % (0.0-10.0); HEMATOCRIT 39.7 % (37.0-47.0); HEMOGLOBIN 12.9 g/dL (12.0-16.0); LYMPH% 61.9 % (20.5-51.1); MCH 30.8 PG (27-31); MCHC 32.5 g/dL (33-37); MCV 94.7 FL (81-99); MONO# 0.55 X1000 (0.11-0.59); MPV 11.7 FL (7.4-10.4); NEUT% 20.5 % (42.2-75.2); PLT 121 X1000 (130-400); RBC 4.19 XMIL (4.2-5.4)
[2017-05-10] MEDS: XIFAXAN PO SCH ×3 (07:38→22:37)
[2017-05-10] MEDS: CLINIMIX E 4.25%-5% SOLUTION 1,000 ML IV SCH ×2 (07:38→21:13)
[2017-05-10] MEDS: LOMOTIL PO SCH ×3 (08:24→18:23)
[2017-05-10] MEDS ORDERED: SYNTHROID PO SCH (09:00)
--- NOTE | 2017-05-10 11:13 | PROGRESS NOTE ---
DATE: 05/10/2017 HISTORY AND REASON FOR ADMISSION: This patient admitted with possible dehydration and chronic diarrhea. This patient was diagnosed with irritable bowel syndrome with predominant diarrhea and also diverticulosis of the left colon. She had a cholecystectomy and after the cholecystectomy her diarrhea has become worse. She was placed on Carafate slurry 1 g qid, dicyclomine 10 mg t.i.d. p.r.n., Lomotil 2.5 mg t.i.d., and also Xifaxan 200 mg t.i.d. The patient has diarrhea has improved. Last night she did not have any bowel movement. She only had 2 according to the nursing records and stools are getting firm. Her abdominal pain is very much improved. She ate a good breakfast today and she did not have any bowel movement at the time when I was visiting her after her breakfast. PHYSICAL EXAMINATION: General: The patient is alert, oriented x3. Does not seem to be any acute distress. She seemed to be relaxed. Vital Signs: The temperature is 98.2 degrees, pulse rate is 62, respiratory rate is 16, blood pressure is 130/47. Systematic examination: Negative. LAB: The white count has improved to 3.23, hemoglobin 12.9, hematocrit 39.7. IMPRESSION: Diarrhea, improving. RECOMMENDATION: Continue current therapy. The patient, when she goes home, needs to see me for followup in 2 weeks. GI with standby. cc: Mike Daniel MD
--- NOTE | 2017-05-10 19:47 | PROGRESS NOTE ---
DATE: 05/10/2017 SUBJECTIVE: The patient has eating still a little bit cramping. No significant diarrhea. REVIEW OF SYSTEMS: None reported. The patient seems to be happy after seen by Dr. Marie. OBJECTIVE: Vital Signs: Stable. HEENT: Within normal limits. Neck: Supple. Chest: Clear. Heart: Sounds are regular. Abdomen: Belly is soft, nontender. Good bowel sounds. No masses palpable. Neurologic: No neurological deficits. INVESTIGATIONS: CBC, white cell count 3.2, hematocrit 39, platelets 121,000. B12 is normal. Gastrin, calcitonin normal. Tissue transglutaminase IgA are normal. Thyroid function tests were normal. ASSESSMENT AND PLAN: 1. Abdominal pain, diarrhea due to irritable bowel syndrome Follow up with recommendation of Dr. Marie. Follow up on 24-hour 5- hydroxyindoleacetic acid. Stool cultures were negative. For the sake of patient's anxiety, we repeated all the tests. 2. Hypothyroidism, on Synthroid. 3. Paroxysmal atrial fibrillation, sinus. Continue on Bentyl, Lomotil, Xifaxan and Carafate. If stable, will be discharged in the morning. LEVEL OF DOCUMENTATION: Twenty-five minutes. cc: Mike Daniel MD MTDD
[2017-05-10] MEDS: SODIUM CHLORIDE 0.9% INJ SCH (22:37)
[2017-05-10] MEDS: PROTONIX IV SCH (22:37)
[2017-05-10] MEDS: LOVENOX SUBQ SCH (22:37)
[2017-05-11] MEDS: CARAFATE LIQUID PO SCH (06:30)
[2017-05-11] MEDS ORDERED: SYNTHROID PO SCH (07:00)
[2017-05-11] MEDS: XIFAXAN PO SCH (08:03)
[2017-05-11] MEDS: LOMOTIL PO SCH (08:03)
[2017-05-11 08:11] VITALS: BP 117/56
--- NOTE | 2017-05-12 18:24 | DISCHARGE SUMMARY ---
ADMISSION DATE: 05/08/2017 DISCHARGE DATE: 05/11/2017 DISCHARGING DIAGNOSES: 1. Intractable abdominal pain and diarrhea due to irritable bowel syndrome. 2. Diverticulosis. 3. Chronic anxiety. 4. Paroxysmal atrial fibrillation. 5. Acid reflux disease. 6. Glaucoma. 7. Hypothyroidism. 8. 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 9. Osteoporosis. CONSULTS: Dr. Marie BRIEF HISTORY: Please see the H and P that was done on 05/08/2017. In brief, she is an 82-year-old white female who has been suffering with chronic belly pain associated with diarrhea and weight loss. The patient has been stressed out and roaming around different physicians looking for the answers. Dr. Marie has well known her condition. The patient lost a lot of weight associated with dehydration and was admitted to the hospital. HOSPITAL COURSE: She was started on IV peripheral parenteral nutrition, and she had an extensive workup done for diarrhea. Dr. Marie reported that she has a bile acid reflux disease. Continue on Carafate. She has been suffering from IBS with the diarrhea. We will use Xifaxan and Lomotil and Bentyl as needed. During this hospital course, she has 2 bowel episodes semisolid. Further workup revealed she has been diagnosed with IBS with the diarrhea. In the past, the patient had EGD and colonoscopy done. The patient seems to be happy. She is going to follow up with Dr. Marie's recommendations. LABORATORY DATA: CBC: White cell count 3.2, hematocrit 39, platelets 121,000. SMA-7 is normal. LFTs were normal. B12 was 100. Gastrin levels are normal. Calcitonin levels are normal. Thyroid function tests were normal. Celiac tissue transglutaminase negative. Stool for Helicobacter pylori was negative. A 24-hour 5-hydroxyindoleacetic acid is pending. DISCHARGE INSTRUCTIONS/MEDICATIONS: The patient seems to be happy and discharged home in a stable condition with the following instructions: 1. Zantac 150 daily. 2. Synthroid 88 mcg daily. 3. Carafate liquid 1 gram p.o. every 6 hours. 4. Follow up with IBS diarrhea based on Dr. Marie's recommendations with Xifaxan, Lomotil, and Bentyl. 5. Also, she has a chronic right ankle pain and seeing the orthopedic surgeon. 6. Follow up in my office in 2 weeks. cc: MD Cat Kim MD
== END 2017-05-11 09:39 | disposition home or self-care (01) ==
LOC: DIRADM 11:58 → 3N 13:57
PROVIDERS: ADMIT Internal Medicine; ATTEND Internal Medicine

== ENCOUNTER 2019-02-26 10:42 | Observation (INO) ==
--- NOTE | 2019-02-26 14:21 | Diag Imaging Result Doc PS360 ---
EXAM: CT ABD/PELVIS W/IV CONT ONLY 02/26/2019 HISTORY: Abdominal pain TECHNIQUE: This exam was performed using automated exposure control, adjustment of mA or kV according to patient size, and/or use of iterative reconstruction technique. COMMENT: The current examination is compared with the previous study of 06/16/2016. There are calcifications in the left lower lobe which were present at the time the previous examination and there is a linear opacity in the posterior costophrenic sulcus which is slightly thicker than it was previously but was at least partially present previously. There are granulomata in the liver and spleen. There is atherosclerotic calcification and noncalcified plaque in the abdominal aorta. There is no evidence of aneurysm. The mesenteric and renal arteries are patent. There is no evidence of nephrolithiasis. There has been cholecystectomy. The adrenal glands are not enlarged. The pancreas is stable in appearance. There is no evidence of bowel obstruction. There is no evidence of significant adenopathy. The liver is stable in appearance. Pelvis: There is no evidence of appendicitis. The urinary bladder is not distended. There is no evidence of free fluid. There are numerous phleboliths in the pelvis. There has been hysterectomy. There is no evidence of acute bony abnormality. IMPRESSION: No evidence of acute disease. Electronically signed by Samuel Sarmiento 02/26/2019 2:19 PM
[2019-02-26] MEDS: CLINIMIX E 4.25%-5% SOLUTION 1,000 ML IV SCH (14:35)
[2019-02-26 14:37] LABS: URINE SOURCE CLEAN CATCH
[2019-02-26 14:43] LABS: BILIRUBIN URINE NEGATIVE (NEGATIVE); BLOOD URINE NEGATIVE (NEGATIVE); COLOR STRAW; GLUCOSE URINE NEGATIVE (NEGATIVE); KETONE URINE NEGATIVE (NEGATIVE); LEUKOCYTES URINE NEGATIVE (NEGATIVE); NITRITE URINE NEGATIVE (NEGATIVE); PROTEIN URINE NEGATIVE (NEGATIVE); SP GRAVITY URINE 1.019; TURBIDITY URINE CLEAR (CLEAR); UROBILINOGEN URINE NORMAL (NORMAL)
[2019-02-26 14:45] LABS: UR EPITHELIAL CELLS <10 /HPF (<10); URINE BACTERIA NEGATIVE /HPF; URINE RBC <10 /HPF (<10); URINE WBC <10 /HPF (<10)
--- NOTE | 2019-02-26 21:21 | HISTORY AND PHYSICAL ---
CHIEF COMPLAINT: Intractable diarrhea, abdominal pain off and on for the last 3 years. HISTORY OF PRESENT ILLNESS: She is an 84-year-old, white female, was requested to see me yesterday by Dr. Marie with above symptoms. She has diarrhea, losing weight. She had a complete workup done before and ruled out celiac disease, was treating IBS with diarrhea. She has been reassured and did some workup as an outpatient. called me. She is having severe abdominal pain, not eating. She is dehydrated. She was admitted directly for observation for IV fluids and further workup. PAST MEDICAL HISTORY: 1. Chronic anxiety. 2. Paroxysmal atrial fibrillation. 3. Acid reflux disease. 4. Glaucoma. 5. Hypothyroidism. 6. IBS with diarrhea. 7. Chronic leukopenia due to T-cell lymphoma, granulocytosis. 8. Chronic back pain. 9. Osteoporosis. PAST SURGICAL HISTORY: Thyroidectomy, cholecystectomy, complete hysterectomy, back surgery x2. ALLERGIES: Not known. SOCIAL HISTORY: , 3 children, lives in [place]. No smoking. No alcohol. FAMILY HISTORY: Father of appendix cancer. Mom of stroke at 96. MEDICINES: 1. Zantac 150 p.o. b.i.d. 2. Synthroid 88 mcg daily. 3. Diphenoxylate/atropine 1 tablet p.o. b.i.d. 4. Eliquis 5 mg daily. 5. Metoprolol 25 daily. 6. Cholestyramine pack as needed. REVIEW OF SYSTEMS: HEENT: No headache. No vision problem. No earache. No sore throat. Neck: No goiter. No lymphadenopathy. No bruit. Cardiopulmonary: No chest pain, shortness of breath, PND, orthopnea. Gastrointestinal: Abdominal pain. Diarrhea 2 or 3 times a day. Not able to eat. Genitourinary: No history of hesitancy, frequency, dysuria. No swelling of feet. No joint pain. Neurologic: No focal symptoms or weakness. PHYSICAL EXAMINATION: VITAL SIGNS: Temperature is 98.2 degrees, pulse 68, blood pressure is 160/73. Five feet 4 inches, 113 pounds. HEENT: Within normal limits. Thyroid scar present of the neck. Dry mucous membranes. CHEST: Bilateral air entry. CARDIOVASCULAR: Heart sounds are regular. No murmurs. ABDOMEN: Belly is soft, nontender. No signs of peritonitis. No masses palpable. EXTREMITIES: No peripheral edema, cyanosis. NEUROLOGIC: No obvious neurological deficits. INVESTIGATIONS: Urinalysis is clear. CBC, did yesterday on 02/25/2019, white cell count 3.7, hematocrit 42, platelets 106,000. Sodium 141, potassium 4.2, chloride 104, BUN 12, creatinine 0.8, glucose 97, calcium 9.5. Stool cultures are pending. ASSESSMENT AND PLAN: An 84-year-old, white female, admitted to the hospital with abdominal pain, diarrhea, weight loss, etiology to be determined. For the family's sake, we will repeat the CT scan of the abdomen and pelvis, intravenous Clinimix, and stool cultures to rule out pancreatic insufficiency. Reconcile home medications. Based on these tests, further recommendations will be followed. Since Dr. Marie is not coming to the hospital, will see the workup and do as an outpatient workup. cc: Mike Daniel MD
[2019-02-26] MEDS: ZANTAC PO SCH (21:35)
[2019-02-27] MEDS: CLINIMIX E 4.25%-5% SOLUTION 1,000 ML IV SCH (06:26)
[2019-02-27] MEDS: SYNTHROID PO SCH ×2 (06:27→06:30)
--- NOTE | 2019-02-27 08:19 | EKG Report ---
Test Performed on : 02/27/2019 07:57:02 AM Test Reason : chest pain Blood Pressure : / mmHG Vent. Rate : 068 BPM Atrial Rate : 068 BPM P-R Int : 134 ms QRS Dur : 110 ms QT Int : 420 ms P-R-T Axes : 075 117 024 degrees QTc Int : 446 ms Normal sinus rhythm. with sinus arrhythmia. Right bundle branch block Left posterior fascicular block Bifascicular block Abnormal ECG When compared with ECG of 25-JAN-2017 10:48, Left posterior fascicular block is now present Nonspecific T wave abnormality, improved in Anterior leads Confirmed by Darwin Javier MD ([id number]) on 02/27/2019 9:14:05 AM
[2019-02-27] MEDS ORDERED: SYNTHROID PO SCH (09:00)
[2019-02-27] MEDS: QUESTRAN PO SCH (09:09)
[2019-02-27] MEDS: ZANTAC PO SCH ×2 (09:09→21:38)
[2019-02-27] MEDS: TOPROL XL PO SCH ×2 (09:09→09:12)
[2019-02-27] MEDS: ELIQUIS PO SCH ×2 (09:09→09:11)
--- NOTE | 2019-02-27 21:21 | PROGRESS NOTE ---
DATE: 02/27/2019 SUBJECTIVE: 1. The patient complains of palpitations. 2. Still has abdominal cramping. She has history of PSVT. PHYSICAL EXAMINATION: Vital signs: Temperature is 98 degrees. Vitals are stable. Pulse is 72. Blood pressure is 146/83. HEENT: Within normal limits. Neck: Supple. No lymphadenopathy. Chest: Bilateral air entry. Heart: Sounds are regular. Abdomen: Belly is soft, nontender. Good bowel sounds. Neurologic: No neurological deficits. ASSESSMENT AND PLAN: 1. An 84-year-old white female with chronic abdominal pain for the last 3 years, negative workup. Appears to be irritable bowel syndrome with chronic diarrhea. She had explosive bowel movements yesterday. CT scan was negative. Labs were normal. Stool cultures were negative. Continue on IV Clinimix. 2. Abnormal EKG with right bundle. 3. Paroxysmal supraventricular tachycardia. Continue on child monitor. On metoprolol and Eliquis. 4. Hypothyroidism was stable and if she is stable will discharge in the morning. We will do outpatient workup. LEVEL OF DOCUMENTATION: 25 minutes. cc: Mike Daniel MD
[2019-02-28] MEDS: CLINIMIX E 4.25%-5% SOLUTION 1,000 ML IV SCH (02:35)
[2019-02-28] MEDS: SYNTHROID PO SCH (05:36)
[2019-02-28] MEDS ORDERED: SYNTHROID PO SCH (07:00)
[2019-02-28] MEDS: ZANTAC PO SCH (09:54)
[2019-02-28] MEDS: QUESTRAN PO SCH (09:54)
[2019-02-28] MEDS: TOPROL XL PO SCH (09:54)
[2019-02-28] MEDS: ELIQUIS PO SCH (09:56)
[2019-02-28 12:21] VITALS: BP 148/67
== END 2019-02-28 16:00 | disposition home or self-care (01) ==
LOC: DIRADM → 4N 10:42
PROVIDERS: ADMIT Internal Medicine; ATTEND Internal Medicine
CPT/HCPCS: 74177; 81001; 82272; 82438; 82656; 83630; 83735; 84100; 84302; 84999; 87045; 87046; 87205; 87324; 87338; 89055; 93005; 93010; A9270; Q9967